=== PATIENT | male | born 1955 | race Caucasian/White ===

== ENCOUNTER → 2019-03-31 | Outpatient (REF) | payer MEDICARE, OTHER ==
[2019-03-31 17:07] LABS: HEMATOCRIT 53.6 % (42.0-52.0); HEMOGLOBIN 17.3 g/dl (13.5-17.5); MEAN CORPUSCULAR HEMOGLOBIN 30.2 pg (27.0-33.0); MEAN CORPUSCULAR HGB CONC 32.3 g/dl (32.0-36.5); MEAN CORPUSCULAR VOLUME 93.7 fl (80.0-96.0); PLATELET COUNT, AUTOMATED 243 10^3/uL (150-450); RED BLOOD COUNT 5.72 10^6/uL (4.30-6.10)
[2019-03-31 17:12] LABS: WHITE BLOOD COUNT 14.4 10^3/uL (4.0-10.0)
[2019-03-31 17:19] LABS: ALT/SGPT 23 U/L (12-78); BILIRUBIN,TOTAL 0.6 MG/DL (0.2-1.0); BLOOD UREA NITROGEN 12 MG/DL (7-18); CALCIUM LEVEL 9.3 MG/DL (8.8-10.2); CARBON DIOXIDE LEVEL 30 MEQ/L (21-32); CHLORIDE LEVEL 103 MEQ/L (98-107); CHOLESTEROL LEVEL 234 MG/DL (<200); CHOLESTEROL RISK RATIO 4.978 (<5); CREATININE FOR GFR 0.97 MG/DL (0.70-1.30); FREE T4 0.97 NG/DL (0.76-1.46); GLOMERULAR FILTRATION RATE > 60.0 (>49); GLUCOSE, FASTING 72 MG/DL (70-100); HDL CHOLESTEROL 47 MG/DL (>40); LDL CHOLESTEROL 168 MG/DL (<100); NON-HDL-C 187 MG/DL; POTASSIUM SERUM 5.1 MEQ/L (3.5-5.1); SODIUM LEVEL 137 MEQ/L (136-145); TOTAL PROTEIN 7.3 GM/DL (6.4-8.2); TRIGLYCERIDES LEVEL 95 MG/DL (<150)
[2019-03-31 18:36] LABS: ATYPICAL LYMPH 2 % (0-5); EOSINOPHILS 1 % (0-5); LYMPHOCYTES 47 % (16-52); MONOCYTES 11 % (0-8); NEUTROPHILS 39 % (35-75)
[2019-03-31 18:37] LABS: PLATELET ESTIMATE NORMAL (NORMAL)
[2019-03-31 18:49] LABS: HEMOGLOBIN A1c 5.6 %
== END ==
LOC: M SFHCLERA 11:13
PROVIDERS: ATTEND Nurse Practitioner Family
DX: R68.89 Other general symptoms and signs (principal); Z76.89 Persons encountering health services in other specified circumstances; Z13.220 Encounter for screening for lipoid disorders; Z13.1 Encounter for screening for diabetes mellitus; Z12.5 Encounter for screening for malignant neoplasm of prostate; R03.0 Elevated blood-pressure reading, without diagnosis of hypertension
CPT/HCPCS: 80053; 80061; 83036; 84439; 84443; 85025; 93005; G0103; G0463

== ENCOUNTER → 2019-05-01 | Outpatient (CLI) | payer MEDICARE, OTHER ==
--- NOTE | 2019-05-01 12:21 | REP ---
CT CHEST WITHOUT CONTRAST: Low-dose screening exam. HISTORY: Tobacco abuse. Comparison chest CT study [address] FINDINGS: There is a benign calcified granuloma in the right lower lobe visualized on page 70 of 116. This is unchanged from the 2008 prior study. There are emphysematous changes in the upper lobes bilaterally. There is a 4 mm subpleural nodule in the superior segment of the left lower lobe on page 35. This is visible in retrospect on the 2008 prior study and is unchanged. No other pulmonary nodule is appreciated. No mass or infiltrate is seen. The study is otherwise unremarkable. IMPRESSION: The lungs RADS category 2 benign findings. Repeat screening exam suggested in 1 year. Electronically Signed by Randolph Middleton MD 05/01/2019 02:30 P
== END ==
LOC: M RAD 10:56
PROVIDERS: ATTEND Nurse Practitioner Family
DX: Z12.2 Encounter for screening for malignant neoplasm of respiratory organs (principal); Z87.891 Personal history of nicotine dependence

== ENCOUNTER → 2019-10-24 | Outpatient (REF) | payer MEDICARE, OTHER ==
[2019-10-24 11:21] LABS: HEMATOCRIT 52.8 % (42.0-52.0); HEMOGLOBIN 17.2 g/dl (13.5-17.5); MEAN CORPUSCULAR HEMOGLOBIN 30.2 pg (27.0-33.0); MEAN CORPUSCULAR HGB CONC 32.6 g/dl (32.0-36.5); MEAN CORPUSCULAR VOLUME 92.6 fl (80.0-96.0); PLATELET COUNT, AUTOMATED 239 10^3/uL (150-450)
[2019-10-24 11:27] LABS: WHITE BLOOD COUNT 17.3 10^3/uL (4.0-10.0)
[2019-10-24 11:57] LABS: ATYPICAL LYMPH 6 % (0-5); LYMPHOCYTES 67 % (16-44); MONOCYTES 8 % (0-5); NEUTROPHILS 19 % (28-66); PLATELET ESTIMATE NORMAL (NORMAL)
[2019-10-24 11:58] LABS: ANISOCYTOSIS 1+
[2019-10-24 13:21] LABS: ALBUMIN 3.7 GM/DL (3.2-5.2); ALT/SGPT 25 U/L (12-78); BILIRUBIN,TOTAL 0.6 MG/DL (0.2-1.0); BLOOD UREA NITROGEN 18 MG/DL (7-18); CALCIUM LEVEL 9.1 MG/DL (8.8-10.2); CARBON DIOXIDE LEVEL 27 MEQ/L (21-32); CHLORIDE LEVEL 106 MEQ/L (98-107); CHOLESTEROL LEVEL 179 MG/DL (<200); CHOLESTEROL RISK RATIO 4.365 (<5); CREATININE FOR GFR 1.02 MG/DL (0.70-1.30); GLOMERULAR FILTRATION RATE > 60.0 (>49); GLUCOSE, FASTING 89 MG/DL (70-100); HDL CHOLESTEROL 41 MG/DL (>40); LDL CHOLESTEROL 120 MG/DL (<100); NON-HDL-C 138 MG/DL; POTASSIUM SERUM 4.9 MEQ/L (3.5-5.1); SODIUM LEVEL 140 MEQ/L (136-145); TESTOSTERONE 596 NG/DL (241-827); TRIGLYCERIDES LEVEL 89 MG/DL (<150)
== END ==
LOC: M SFHCCLAY 08:07
PROVIDERS: ATTEND Nurse Practitioner Family
DX: I10 Essential (primary) hypertension (principal); E78.49 Other hyperlipidemia; R68.89 Other general symptoms and signs

== ENCOUNTER → 2019-10-26 | Outpatient (REF) | payer MEDICARE, OTHER | LOC: M SFHCLERA 15:46 | PROVIDERS: ATTEND Nurse Practitioner Family | DX: D72.820 Lymphocytosis (symptomatic) (principal) ==

== ENCOUNTER → 2019-11-01 | Outpatient (CLI) | payer MEDICARE, OTHER | LOC: M LAB 13:09 | PROVIDERS: ATTEND Nurse Practitioner Family | DX: D72.820 Lymphocytosis (symptomatic) (principal) ==

== ENCOUNTER → 2019-11-30 | Outpatient (CLI) | payer MEDICARE, OTHER ==
[~2019-11-30] MED LIST: AMLO10TA PO; GASTROGRAFIN SOLUTION 30ML (Q9963) As Ordered ONE; ISOVUE-370 76% 100ML VIAL (Q9967) As Ordered ONE; LIPI20TA PO
--- NOTE | 2019-11-30 17:33 | REP ---
Clinical: Chronic lymphocytic leukemia. Restaging. Technique: Axial contrast enhanced images from the thoracic inlet to the upper abdomen with coronal and sagittal re-formations using 100 ml Isovue 370 intravenous contrast material. Comparison: 10/03/2008 Findings: Mildly prominent mediastinal and hilar lymph nodes and noted. Right hilar lymph nodes measures 15 mm short axis diameter. Chronic calcified small bilateral hilar lymph nodes are also identified and similar to prior examination. Lung rodriguez demonstrate moderate emphysematous changes with minimal bibasilar scarring and stable calcified right lower lobe granuloma. No focal consolidation, significant nodule or mass lesion. No pleural effusion. No pneumothorax. Thoracic aorta, pulmonary vasculature and heart/pericardium are relatively normal. Musculoskeletal structures are intact without focal osseous abnormality. Impression: 1. Mildly prominent mediastinal and hilar lymph nodes. 2. Moderate emphysematous disease and evidence for prior granulomatous changes. Electronically Signed by John Lang MD 11/30/2019 05:25 P
--- NOTE | 2019-11-30 17:39 | REP ---
Clinical: Chronic lymphocytic leukemia. Restaging. Technique: Axial contrast enhanced images from the lung bases to the pubic symphysis using oral (per protocol) and 100 ml Isovue 370 intravenous contrast material with coronal and sagittal re-formations. Findings: Liver, spleen, pancreas, gallbladder, and bilateral adrenal glands are normal. The kidneys demonstrate age-related cortical thinning and peripelvic cysts without acute perinephric stranding or hydronephrosis. The enteric system is without obstruction or acute inflammatory process. However, a opmbccdx-ej-aemos right inguinal hernia contains multiple loops of nondilated small bowel. Scattered diverticula noted without acute diverticulitis. Pelvis demonstrates normal bladder and age appropriate prostate/seminal vesicles. A fat containing left inguinal hernia is also noted. No pelvic fluid or ascites. No free air. A few scattered lymph nodes are appreciated. Specifically, there is a single lymph node adjacent to the distal esophagus which measures 12 mm as well as few para-aortic retroperitoneal lymph nodes which measure up to approximately 12 mm. Impression: 1. Few nonspecific scattered lymph nodes up to 12 mm identified in the periaortic retroperitoneal region and adjacent to the distal esophagus. 2. Chronic renal changes. 3. Moderate to large right inguinal hernia containing nonobstructed loops of small bowel and small fat containing left inguinal hernia. Electronically Signed by John Lang MD 11/30/2019 05:31 P
== END ==
LOC: M RAD 14:16
PROVIDERS: ATTEND Internal Medicine Hematology
DX: C91.90 Lymphoid leukemia, unspecified not having achieved remission (principal); R59.0 Localized enlarged lymph nodes; J43.9 Emphysema, unspecified; K40.20 Bilateral inguinal hernia, without obstruction or gangrene, not specified as recurrent; K57.90 Diverticulosis of intestine, part unspecified, without perforation or abscess without bleeding
CPT/HCPCS: 71260; 74177; Q9963; Q9967

== ENCOUNTER 2020-01-03 06:43 | Day surgery (SDC) | payer MEDICARE, OTHER ==
[~2020-01-03] VITALS: Ht 182.9 cm; Wt 91.5 kg
[~2020-01-03 06:43] MED LIST changes: -GASTROGRAFIN SOLUTION 30ML (Q9963) As Ordered ONE; -ISOVUE-370 76% 100ML VIAL (Q9967) As Ordered ONE
[2020-01-03] MEDS ORDERED: LIDOCAINE 2% INJ 100 MG/5 ML SDV (FOR ANES.) As Ordered ONE (07:18)
[2020-01-03] MEDS ORDERED: MIDAZOLAM INJ 2 MG/2 ML VIAL (J2250) As Ordered ONE (07:18)
[2020-01-03] MEDS ORDERED: propofoL 200 MG/20 ML VIAL As Ordered ONE (07:18)
[2020-01-03] MEDS ORDERED: fentaNYL 100 MCG/2 ML INJECTION (J3010) As Ordered ONE ×2 (07:19→08:50)
[2020-01-03] MEDS ORDERED: ONDANSETRON 4MG/2ML VIAL (J2405) As Ordered ONE (07:58)
[2020-01-03] MEDS ORDERED: KETOROLAC 60 MG/2 ML VIAL (J1885) As Ordered ONE (07:58)
[2020-01-03] MEDS ORDERED: dexameTHASONE 4 MG/ML 1ML VIAL (J1100) As Ordered ONE (07:58)
[2020-01-03] MEDS ORDERED: LR 1,000 ML IV ONE (08:00)
[2020-01-03] MEDS ORDERED: EPINEPHrine INJ 1 MG/ML 1ML VIAL As Ordered ONE (08:41)
[2020-01-03] MEDS ORDERED: METOCLOPRAMIDE INJ 10MG/2ML VIAL (J2765) IV PRN (09:45)
[2020-01-03] MEDS ORDERED: PERCOCET 5MG/325MG TAB PO PRN (09:45)
[2020-01-03] MEDS ORDERED: ONDANSETRON 4MG/2ML VIAL (J2405) IV PRN (09:45)
[2020-01-03] MEDS ORDERED: fentaNYL 100 MCG/2 ML INJECTION (J3010) IV PRN (09:45)
[2020-01-03] MEDS ORDERED: LR 1,000 ML IV SCH (09:45)
[2020-01-03 10:30] VITALS: BP 175/88
[2020-01-03] MEDS ORDERED: CIPRODEX OTIC (10:45)
--- NOTE | 2020-01-03 14:51 | RO ---
DATE OF PROCEDURE: 01/03/2020 PREPROCEDURE DIAGNOSIS: Chronic otitis media with effusion. POSTPROCEDURE DIAGNOSIS: Chronic otitis media with effusion. PROCEDURE: Bilateral myringotomy tubes. SURGEON: Dr. Augusto Howe. FRATERNITY ADVISER: ANESTHESIA: ESTIMATED BLOOD LOSS: INDICATION: Jericho has been followed now for greater than 4 months for persistent middle ear fluid bilaterally associated with conductive hearing loss. A myringotomy had originally been done in the office, but because of the hirsute ear canal as well as the large anterior canal hump placement of tubes was quite challenging in the office. PROCEDURE: With satisfactory mask anesthesia administered, the right ear examined and cleaned under microscope. The patient was positioned so that the anterior inferior segment of the ear could be visualized. An incision was made. Serous fluid rapidly rushed out of the myringotomy. It was suctioned. Ciprodex drops were used to irrigate and then a beveled Bobbin tube was inserted. The left ear was then examined and cleaned under the microscope with similar issues exposure of the anterior tympanic membrane. Anterior inferior myringotomy made, serous fluid suctioned and a beveled Bobbin inserted. Ciprodex instilled. He tolerated the procedure well and was sent to recovery in satisfactory condition. He will be seen my me in less than 1 week.
== END 2020-01-03 10:35 | disposition home or self-care (01) ==
LOC: M SDC 06:43
PROVIDERS: ATTEND Specialist
DX: H65.493 Other chronic nonsuppurative otitis media, bilateral (principal); I10 Essential (primary) hypertension; E78.00 Pure hypercholesterolemia, unspecified; C91.10 Chronic lymphocytic leukemia of B-cell type not having achieved remission; J44.9 Chronic obstructive pulmonary disease, unspecified; R06.83 Snoring; M19.049 Primary osteoarthritis, unspecified hand; F17.210 Nicotine dependence, cigarettes, uncomplicated; Z79.899 Other long term (current) drug therapy; Z88.4 Allergy status to anesthetic agent
CPT/HCPCS: 69436; J1100; J1885; J2250; J2405; J3010

== ENCOUNTER → 2020-02-24 | Outpatient (CLI) | payer MEDICARE, OTHER ==
[~2020-02-24] MED LIST changes: +CIPR7.5D5 OTIC; +ERYT5OIN25 OD; +HYDR-3715 PO
== END ==
LOC: M LABSMTC 07:49
PROVIDERS: ATTEND Anesthesiology
DX: Z01.818 Encounter for other preprocedural examination (principal); Z11.59 Encounter for screening for other viral diseases

== ENCOUNTER 2020-02-27 06:12 | Day surgery (SDC) | payer MEDICARE, OTHER ==
[~2020-02-27] VITALS: Ht 182.9 cm; Wt 90.6 kg
[~2020-02-27 06:12] MED LIST changes: -CIPR7.5D5 OTIC; +CIPRODEX OTIC; -ERYT5OIN25 OD; -HYDR-3715 PO
[2020-02-27] MEDS ORDERED: ERYT5OIN25 OD (06:43)
[2020-02-27] MEDS ORDERED: LR 1,000 ML IV ONE (07:00)
[2020-02-27] MEDS ORDERED: BUPIVACAINE HCL 0.25% 30ML VIAL As Ordered ONE (07:09)
[2020-02-27] MEDS ORDERED: fentaNYL 100 MCG/2 ML INJECTION (J3010) As Ordered ONE ×3 (07:17→09:36)
[2020-02-27] MEDS ORDERED: ROCURONIUM BROMIDE 50 MG/5 ML VIAL As Ordered ONE ×2 (07:17→08:40)
[2020-02-27] MEDS ORDERED: MIDAZOLAM INJ 2MG/2ML VIAL (J2250 PER 1MG) As Ordered ONE (07:17)
[2020-02-27] MEDS ORDERED: LIDOCAINE 2% 100MG/5ML SDV (FOR ANES.) As Ordered ONE ×2 (07:17→07:18)
[2020-02-27] MEDS ORDERED: propofoL 200 MG/20 ML VIAL As Ordered ONE (07:17)
[2020-02-27] MEDS ORDERED: ONDANSETRON 4MG/2ML VIAL As Ordered ONE (07:18)
[2020-02-27] MEDS ORDERED: dexameTHASONE 4 MG/ML 1ML VIAL (J1100 PER 1MG) As Ordered ONE (07:18)
[2020-02-27] MEDS ORDERED: LACRILUBE (AKWA TEARS) OPHTH OINT 3.5 GM As Ordered ONE (07:54)
[2020-02-27] MEDS ORDERED: SUGAMMADEX SODIUM 500 MG/5 ML VIAL (BRIDION) As Ordered ONE (08:56)
[2020-02-27] MEDS ORDERED: ACETAMINOPHEN 1000MG 100ML IV BTL (OFIRMEV) (J0131 PER 10MG) As Ordered ONE ×2 (08:58→12:14)
[2020-02-27] MEDS ORDERED: ALBUTEROL 6.7GM INHALER **FOR ANES. CART/OMNICELL ONLY As Ordered ONE (09:01)
[2020-02-27] MEDS ORDERED: LR 1,000 ML IV SCH (11:00)
[2020-02-27] MEDS ORDERED: ONDANSETRON 4MG/2ML VIAL IV PRN (11:00)
[2020-02-27] MEDS ORDERED: fentaNYL 100 MCG/2 ML INJECTION (J3010) IV PRN (11:00)
[2020-02-27] MEDS ORDERED: oxyCODONE 5MG TAB PO PRN (11:00)
[2020-02-27] MEDS ORDERED: IBUPROFEN 400 MG TAB PO PRN (11:15)
[2020-02-27] MEDS ORDERED: NORCO, ANEXSIA 5/325MG TABLET (HYDROcodone/ACETAMINOPHEN) PO PRN (11:15)
[2020-02-27] MEDS ORDERED: ACETAMINOPHEN TAB 650MG DOSE (2X325MG) PO PRN (11:15)
[2020-02-27] MEDS ORDERED: HYDR-3715 PO (11:25)
[2020-02-27] MEDS: MORPHINE 2 MG/ML 1ML VIAL (J2270) IV PRN ×2 (11:37→11:50)
[2020-02-27] MEDS ORDERED: METOPROLOL 5 MG/5 ML VIAL As Ordered ONE (12:11)
[2020-02-27 13:10] VITALS: BP 144/75
--- NOTE | 2020-02-27 19:18 | ECGEPIP ---
[facility] Test Date: 2020-02-27 Pat Name: YVES JOHNSON Department: Room: - Gender: Male Roof Shingler: CHINTAN : 1955 Requested By: DELMIS DUMONT Order Number: [id number] Reading MD: Abena Barrow Measurements Intervals [place] Rate: 75 P: 63 TX: 143 QRS: 100 QRSD: 106 T: 57 QT: 392 QTc: 439 Interpretive Statements SINUS RHYTHM WITH OCCASIONAL SUPRAVENTRICULAR PREMATURE COMPLEXES POOR R WAVE PROGRESSION BORDERLINE R AXIS DEVIATION NO PRIOR Electronically Signed on 02-27-2020 19:17:59 EDT by Abena Barrow
--- NOTE | 2020-02-29 12:49 | RO ---
DATE OF PROCEDURE: 02/27/2020 PREOPERATIVE DIAGNOSIS: Right inguinal hernia. POSTOPERATIVE DIAGNOSIS: Bilateral inguinal hernias. PROCEDURE PERFORMED: Robotic-assisted laparoscopic repair of right and left inguinal hernias with mesh. On the right side a Bard 3DMax light mesh was utilized. This was reference code [id number] and lot number [id number]. On the left side a left-sided Bard 3DMax light mesh, reference code [id number] was utilized. This was lot number [id number]. SURGEON: Dr. Jose Rafael Zamora LEAD ACCOUNTANT: RASHEED Hugo, who was vital for manipulation of the robotic instruments, placement of the ports, exchange of instruments with passage of the mesh and sutures and then closure of the incisions at the conclusion of procedure. ANESTHESIA: General. INDICATIONS FOR PROCEDURE: Patient is a 64-year-old man who had noticed a bulge in the right inguinal area. He had a definite reducible right inguinal hernia. He had a previous CT scan that had suggested bilateral inguinal hernias and there was a suggestion of a possible small hernia on the left. He was counseled for robotic repair of the right inguinal hernia with possible repair on the left if a definite hernia was identified. OPERATIVE PROCEDURE: The patient was brought to the operating room and placed on the table in a supine position. He was placed under general endotracheal anesthesia. The patient's abdomen was prepped and draped in a sterile fashion. 0.25% Marcaine was infiltrated at the trocar sites as needed. A short longitudinal midline incision was made about 3 cm above the umbilicus along the midline. A Veress needle was inserted and after positive hanging drop test the abdomen was insufflated with carbon dioxide gas. An 8 mm robotic port was placed over 5 mm scope and advanced through the abdominal wall without difficulty. The trocar entered the abdomen just below the inferior edge of the falciform ligament. The liver was well seen and appeared normal. Visualized loops of bowel appeared normal. The anterior abdominal wall at the level of the hernias was obscured by bowel at that point. A second 8 mm port was placed in the right upper quadrant at the same level as the initial trocar and a third was placed in the left upper quadrant. The patient was then tilted to 15-degree head-down tilted. It was clear that he had hernia defects on both sides once the small bowel had fallen away from the abdominal wall. The da Astrid patient cart of the Xi robot was brought into position and the camera port was docked. Targeting took place and the other robotic arms were then docked as well. A force bipolar and a cauterizing scissor were inserted. I then moved to the control console to proceed with the robotic portion of procedure. The right side was addressed first. He clearly had a fairly large hernia defect on the right side. An arcuate incision was made in the peritoneum beginning at the medial umbilical ligament and extending laterally and then inferiorly toward the anterior-superior iliac spine. This was begun approximately 5 cm above the top edge of the hernia defect. The peritoneum was peeled away from the abdominal wall and the hernia sac was dissected free from the underlying cord and withdrawn into the abdominal cavity. The inferior epigastric vessels were identified and preserved. A space was created for placement of the mesh. Because of the hernia sac extending apparently as a complete hernia, the dissection was somewhat difficult and prolonged. Once the hernia sac had been reduced and the space created, the area was inspected and there was no evidence of significant bleeding. The Bard 3DMax Mesh for the right was inserted and positioned into the preperitoneal space. A #2-0 [address] was used to place a single suture at the medial end of the mesh tacking this to the fascia in the area of Aleksandar's ligament. A single suture was placed. The peritoneum was then closed with a running suture of #2-0 absorbable V-Loc beginning at the lateral edge and moving medially to the medial umbilical ligament. There was a small defect in the peritoneum covering and this was closed with a [id number] suture of the #2-0 Vicryl. There was some redundant hernia sac which was folded up and tacked to the closure. This appeared to give complete coverage of the mesh. Some preperitoneal fat had been excised. This was left for later removal. Attention was then turned to the left side. A less extensive peritoneal sac was identified. A similar arcuate incision was made in the peritoneum and the preperitoneal space was opened. The dissection of the sac was much simpler because of less penetration of the sac. This was completely reduced and the preperitoneal space was opened for the mesh. The left-sided Bard 3DMax light mesh was then inserted and positioned. Again this was tacked at the medial end with a single #2-0 Vicryl suture. The peritoneum was then closed with a running absorbable #2-0 V-Loc suture from lateral to medial. Again, there was a small rent in the peritoneum and this was closed with #2-0 Vicryl. As the second defect was being closed, the patient was returned to a nearly flat position and just before the closure was finished the abdominal pressure was reduced to 8 mmHg. The needles that remained were all removed. A specimen pouch was inserted and the preperitoneal fat for the right side was inserted into the pouch. The instruments were removed and the robot was undocked. The abdomen was deflated. The specimen pouch was withdrawn through the abdominal wall and the fatty tissue was removed from within the pouch and discarded. The incisions were then closed with buried #4-0 Vicryl and Steri-Strips. The patient tolerated the procedure well without apparent complication. He did have some gas insufflated into the scrotum, but this was relatively minor. He was awakened in the operating room, extubated and moved to the recovery room in stable condition. ZAKI
== END 2020-02-27 13:12 | disposition home or self-care (01) ==
LOC: M SDC 06:12
PROVIDERS: ATTEND Surgery
DX: K40.20 Bilateral inguinal hernia, without obstruction or gangrene, not specified as recurrent (principal); Z88.6 Allergy status to analgesic agent; I10 Essential (primary) hypertension; E78.5 Hyperlipidemia, unspecified; C91.10 Chronic lymphocytic leukemia of B-cell type not having achieved remission; J44.9 Chronic obstructive pulmonary disease, unspecified; F17.218 Nicotine dependence, cigarettes, with other nicotine-induced disorders; Z79.899 Other long term (current) drug therapy
CPT/HCPCS: 49650; 93005; C1781; J0131; J1100; J2250; J2270; J2405; J3010

== ENCOUNTER → 2021-01-14 | Outpatient (CLI) | payer MEDICARE, OTHER ==
[~2021-01-14] MED LIST changes: +CIPR7.5D5 OTIC; -CIPRODEX OTIC; +ERYT5OIN25 OD; +HYDR-3715 PO
--- NOTE | 2021-01-14 16:23 | REP ---
INDICATION: TOBACCO ABUSE. COMPARISON: CT 11/30/2019, low-dose CT 05/01/2019. TECHNIQUE: Standard low-dose lung CT screening protocol with only lung window does presented for review by protocol. FINDINGS: Lung rodriguez are hyperinflated with emphysematous changes mid and upper lung zone greater than other areas. Is calcified granuloma the lateral basal segment right lower lobe best seen on image 72 and unchanged. Some minimal minimal scarring in the lateral segment of the right middle lobe peripherally, unchanged. Superior segment of the right lower lobe on image 41 shows a 3.4 mm subpleural nodule also unchanged. There are no new or significant nodules in the right or left lung. No pleural effusion, pleural thickening or calcified pleural plaques. No gross widening of the mediastinum enlargement of the heart or gross aortic aneurysm. Limited evaluation of the bones show degenerative spurring of multiple thoracic endplates IMPRESSION: Lung RADS category 2 benign. No evidence of malignancy. Stable examination. Benign findings. Patients with this category of findings of less than 1% chance of malignancy at the time of examination. For patients at high risk of lung malignancy, continued annual lung low-dose CT screening protocol recommended. <Electronically signed by Norman Hampton > 01/14/21 [id number]
== END ==
LOC: M RAD 13:40
PROVIDERS: ATTEND Nurse Practitioner Family
DX: F17.210 Nicotine dependence, cigarettes, uncomplicated (principal); Z12.2 Encounter for screening for malignant neoplasm of respiratory organs

== ENCOUNTER → 2022-03-18 | Outpatient (CLI) | payer MEDICARE, OTHER | LOC: M RAD 13:31 | PROVIDERS: ATTEND Nurse Practitioner Family | DX: Z12.2 Encounter for screening for malignant neoplasm of respiratory organs (principal); F17.210 Nicotine dependence, cigarettes, uncomplicated; J43.9 Emphysema, unspecified; R91.8 Other nonspecific abnormal finding of lung field; J84.10 Pulmonary fibrosis, unspecified ==

== ENCOUNTER → 2023-04-26 | Outpatient (CLI) | payer MEDICARE, OTHER ==
[2023-04-26 10:47] LABS: BASO # 0.2 10^3/uL (0.0-0.2); BASO % 0.6 % (0.0-1.0); EOS # 0.3 10^3/uL (0.0-0.5); EOS % 1.1 % (0.0-3.0); HEMATOCRIT 49.8 % (42.0-52.0); HEMOGLOBIN 16.3 g/dl (13.5-17.5); LYMPH # 20.3 10^3/uL (1.5-5.0); LYMPH % 71.3 % (24.0-44.0); MEAN CORPUSCULAR HEMOGLOBIN 29.6 pg (27.0-33.0); MEAN CORPUSCULAR HGB CONC 32.7 g/dl (32.0-36.5); MEAN CORPUSCULAR VOLUME 90.5 fl (80.0-96.0); MONO % 10.1 % (2.0-8.0); NEUTROPHILS # 4.8 10^3/uL (1.5-8.5); NEUTROPHILS % 16.7 % (36.0-66.0); PLATELET COUNT, AUTOMATED 226 10^3/uL (150-450); WHITE BLOOD COUNT 28.4 10^3/uL (4.0-10.0)
[2023-04-26 10:51] LABS: MONO # 2.9 10^3/uL (0.0-0.8)
[2023-04-26 11:14] LABS: LDH LACTATE DEHYDROGENASE 202 U/L (120-246)
[2023-04-26 11:15] LABS: ALBUMIN 3.8 G/DL (3.2-5.2); ALKALINE PHOSPHATASE 70 U/L (46-116); ALT/SGPT 11 U/L (7.0-40); AST/SGOT 19 U/L (<34); BLOOD UREA NITROGEN 11 MG/DL (9-23); CALCIUM LEVEL 8.5 MG/DL (8.3-10.6); CARBON DIOXIDE LEVEL 29 MMOL/L (20-31); CHLORIDE LEVEL 105 MMOL/L (98-107); CREATININE FOR GFR 0.85 MG/DL (0.70-1.30); GLOMERULAR FILTRATION RATE > 60.0 (>49); GLUCOSE, FASTING 84 MG/DL (74-106); POTASSIUM SERUM 4.8 MMOL/L (3.5-5.1); SODIUM LEVEL 137 MMOL/L (136-145); TOTAL PROTEIN 6.6 G/DL (5.7-8.2)
[2023-04-26 11:16] LABS: IMMUNOGLOBULIN A 200.1 MG/DL (40-350); IMMUNOGLOBULIN G 1125 MG/DL (650-1600)
[2023-04-26 11:31] LABS: IMMUNOGLOBULIN M < 21.0 MG/DL (50-300)
== END ==
LOC: M LAB 10:06
PROVIDERS: ATTEND Specialist
DX: C85.10 Unspecified B-cell lymphoma, unspecified site (principal)

== ENCOUNTER → 2024-07-14 | Outpatient (REF) | payer MEDICARE, OTHER ==
[2024-07-14 19:01] LABS: ATYPICAL LYMPH 24 % (0-5); LYMPHOCYTES 53 % (16-44); MONOCYTES 13 % (0-5); NEUTROPHILS 10 % (28-66)
[2024-07-14 19:02] LABS: PLATELET ESTIMATE NORMAL (NORMAL)
[2024-07-14 19:04] LABS: ANISOCYTOSIS 1+; MICROCYTOSIS 1+
== END ==
LOC: M LAB REF 16:19
PROVIDERS: ATTEND Internal Medicine
DX: C91.10 Chronic lymphocytic leukemia of B-cell type not having achieved remission (principal)

== ENCOUNTER → 2025-07-16 | Outpatient (REF) | payer MEDICARE, OTHER ==
[~2025-07-16] MED LIST changes: +AMLO-751 PO; -AMLO10TA PO
[2025-07-16 15:32] LABS: ATYPICAL LYMPH 20 % (0-5); EOSINOPHILS 1 % (0-3); LYMPHOCYTES 61 % (16-44); MONOCYTES 4 % (0-5); NEUTROPHILS 14 % (28-66); PLATELET ESTIMATE NORMAL (NORMAL)
== END ==
LOC: M LAB REF 14:06
PROVIDERS: ATTEND Internal Medicine
DX: C91.10 Chronic lymphocytic leukemia of B-cell type not having achieved remission (principal)